=== PATIENT | male | born 1965 | race African-American/Black ===

== ENCOUNTER 2024-09-02 09:58 | Outpatient (CLI) | payer BC ==
[2024-09-02 11:13] LABS: #Basophils Less than 0.03 10x3/uL (0.0-0.2); %Basophils 0.5 % (0.0-1.0); %Eosinophils 1.2 % (0.0-10.0); %Lymphocytes 33.5 % (21.0-51.0); %Monocytes 9.1 % (0.0-10.0); %Neutrophils 55.5 % (42.0-75.0); Hematocrit 39.7 % (42.0-52.0); Hemoglobin 13.2 g/dL (14.0-18.0); Mean Corpuscular HGB CONC 33.2 g/dL (32.0-36.0); Mean Corpuscular Hemoglobin 27.7 pg (27.0-31.0); Mean Corpuscular Volume 83.4 fL (78.0-98.0); Mean Platelet Volume 9.4 fL (7.4-10.4); Platelet Count 265 10x3/uL (130-400); RBC Distribution Width 13.9 % (11.5-14.5); Red Blood Cell (RBC) Count 4.76 mill/uL (4.70-6.10)
[2024-09-02 11:18] LABS: Bacteria/HPF None Seen HPF (None Seen); Bilirubin Negative (Negative); Blood, Urine Negative (Negative); Clarity Clear (Clear); Glucose, Urine (Dipstick) Normal (Negative); Ketone, Urine Negative (Negative); Leukocyte Negative Leu/uL (Negative); Nitrite Negative (Negative); Protein, Urine (Dipstick) 20 mg/dL (Neg-Trace); RBC/HPF 0-3 HPF (0-3); Specific Gravity, Urine 1.027 (1.002-1.036); Squamous Epithelial None Seen HPF (0-3); Urobilinogen Normal mg/dL (Less than 2); WBC/HPF 0-3 HPF (0-3)
[2024-09-02 11:28] LABS: INR-International Normal Ratio 0.9; PTT 25.7 sec (22.9-36.1); Prothrombin Time 12.5 sec (12.0-14.7)
[2024-09-02 11:36] LABS: Anion Gap 11 mmol/L (10-20); BUN (Urea Nitrogen) 16 mg/dL (8.4-25.7); Calc. Creatinine Clearance 0 mL/min (70-130); Carbon Dioxide 23 mmol/L (22-29); Chloride 108 mmol/L (98-107); Estimated GFR 85; Glucose 92 mg/dL (70-105); Potassium 3.7 mmol/L (3.5-5.1); Sodium 138 mmol/L (136-145)
== END 2024-09-02 09:59 | disposition home or self-care (01) ==
LOC: LABBT 09:58
PROVIDERS: ATTEND Urology
DX: Z01.818 Encounter for other preprocedural examination (principal); Z12.5 Encounter for screening for malignant neoplasm of prostate; N40.1 Benign prostatic hyperplasia with lower urinary tract symptoms; N52.9 Male erectile dysfunction, unspecified; N43.3 Hydrocele, unspecified; R35.0 Frequency of micturition; R39.198 Other difficulties with micturition; Z86.711 Personal history of pulmonary embolism
CPT/HCPCS: 80048; 81001; 85025; 85610; 85730; 87086; 93005; 93010

== ENCOUNTER 2024-09-14 05:37 | Day surgery (SDC) | payer BC ==
[2024-09-02 10:21] VITALS: BMI 30.4
[2024-09-14] MEDS ORDERED: fentaNYL PF 100 MCG/2 ML SYRINGE ONE (06:46)
[2024-09-14] MEDS ORDERED: PROPOFOL 20 ML ONE ×2 (06:46→07:42)
[2024-09-14] MEDS ORDERED: Lidocaine 2% PF 5 ML VIAL ONE (06:47)
[2024-09-14] MEDS ORDERED: Bacitracin Zinc Ointment 30 gm TUBE ONE (06:50)
[2024-09-14] MEDS ORDERED: Bupivacaine 0.25% HCL 30 ML VIAL ONE (06:50)
[2024-09-14] MEDS ORDERED: CEFAZOLIN 2 GM VIAL ONE (06:51)
[2024-09-14] MEDS ORDERED: Sodium Chloride 0.9% 100 ML ONE (06:51)
[2024-09-14] MEDS ORDERED: LevoFLOXacin D5W 500 mg (100 mL) BAG ONE (06:51)
[2024-09-14] MEDS ORDERED: Ondansetron PF 4 MG/2 ML Vial ONE (07:36)
[2024-09-14] MEDS ORDERED: Dexamethasone 4 mg/ml Vial ONE (07:36)
[2024-09-14] MEDS ORDERED: PHENYLEPHRINE-NS 100 MCG/ML 10 ML SYRINGE ONE (07:44)
[2024-09-14] MEDS ORDERED: ePHEDrine Sulfate 50 MG/10 ML VIAL ONE (07:52)
[2024-09-14] MEDS ORDERED: fentaNYL 50 mcg/mL 1 mL Vial ONE (08:45)
[2024-09-14] MEDS ORDERED: Tamsulosin HCl 0.4 MG CAP ONE (08:45)
[2024-09-14] MEDS ORDERED: Phenazopyridine HCl 100 MG TAB ONE (08:47)
== END 2024-09-14 12:25 | disposition home or self-care (01) ==
LOC: SDC 05:37
PROVIDERS: ATTEND Urology
PROC: 0TJB8ZZ Inspection of Bladder, Via Natural or Artificial Opening Endoscopic (ICD-10-PCS; principal; 2024-09-14)
PROC: 0VTTXZZ Resection of Prepuce, External Approach (ICD-10-PCS; principal; 2024-09-14)
DX: N40.1 Benign prostatic hyperplasia with lower urinary tract symptoms (principal)
CPT/HCPCS: 88304; J0665; J1100; J1956; J2405; J2704; J3010

== ENCOUNTER 2025-05-02 13:45 | Outpatient (CLI) | payer BC ==
[2025-05-02 15:30] LABS: #Basophils 0.03 10x3/uL (0.0-0.2); #Eosinophils 0.07 10x3/uL (0.0-0.7); #Monocytes 0.42 10x3/uL (0.11-0.59); #Neutrophils 2.63 10x3/uL (1.40-6.50); %Basophils 0.6 % (0.0-1.0); %Eosinophils 1.5 % (0.0-10.0); %Lymphocytes 31.9 % (21.0-51.0); %Monocytes 9.1 % (0.0-10.0); %Neutrophils 56.7 % (42.0-75.0); Hematocrit 40.5 % (42.0-52.0); Hemoglobin 12.9 g/dL (14.0-18.0); Mean Corpuscular Hemoglobin 27.6 pg (27.0-31.0); Mean Corpuscular Volume 86.5 fL (78.0-98.0); Platelet Count 257 10x3/uL (130-400); Red Blood Cell (RBC) Count 4.68 mill/uL (4.70-6.10); White Blood Cell (WBC) Count 4.64 10x3/uL (4.8-10.8)
[2025-05-02 15:48] LABS: INR-International Normal Ratio 1.0; PTT 25.2 sec (22.9-36.1); Prothrombin Time 13.1 sec (12.0-14.7)
[2025-05-02 16:04] LABS: ALT (SGPT) 17 U/L (Less than 45); AST (SGOT) 19 U/L (11-34); Albumin 4.1 g/dL (3.1-4.5); Alkaline Phosphatase 89 U/L (40-110); Anion Gap 16 mmol/L (10-20); BUN (Urea Nitrogen) 16 mg/dL (8.4-25.7); Bilirubin, Total 0.4 mg/dL (0.3-1.2); Calc. Creatinine Clearance 0 mL/min (70-130); Calcium 9.0 mg/dL (7.8-10.44); Carbon Dioxide 24 mmol/L (22-29); Chloride 106 mmol/L (98-107); Globulin 2.6 g/dL (2.4-3.5); Glucose 84 mg/dL (70-105); Potassium 4.0 mmol/L (3.5-5.1); Sodium 142 mmol/L (136-145)
[2025-05-02 16:33] LABS: Bacteria/HPF None Seen HPF (None Seen); Glucose, Urine (Dipstick) Normal (Negative); Leukocyte Negative Leu/uL (Negative); Protein, Urine (Dipstick) Negative (Neg-Trace); RBC/HPF 0-3 HPF (0-3); Specific Gravity, Urine 1.024 (1.002-1.036); WBC/HPF 0-3 HPF (0-3)
== END 2025-05-02 13:46 | disposition home or self-care (01) ==
LOC: LABBT 13:45
PROVIDERS: ATTEND Urology
DX: Z01.818 Encounter for other preprocedural examination (principal); N40.1 Benign prostatic hyperplasia with lower urinary tract symptoms
CPT/HCPCS: 71046; 80053; 81001; 85025; 85610; 85730; 86850; 86900; 86901; 87086; 93005; 93010

== ENCOUNTER 2025-05-15 06:31 | Inpatient (IN) | payer BC ==
[2025-05-15] MEDS ORDERED: Ketamine In 0.9 % NaCl 50 MG/5 ML SYRINGE ONE (06:52)
[2025-05-15] MEDS ORDERED: Rocuronium Bromide 10 MG/ML (10ML VIAL) ONE ×2 (06:54→09:12)
[2025-05-15] MEDS ORDERED: MINERAL OIL/WHITE PETROLATUM 3.5 GM TUBE ONE (06:54)
[2025-05-15] MEDS ORDERED: PROPOFOL 20 ML ONE ×2 (06:54→09:08)
[2025-05-15] MEDS ORDERED: LevoFLOXacin D5W 500 mg (100 mL) BAG ONE (07:03)
[2025-05-15] MEDS ORDERED: Bupivacaine 0.25% HCL 30 ML VIAL ONE (10:19)
[2025-05-15] MEDS ORDERED: HYDROmorphone 2 MG/ML VIAL ONE (12:30)
[2025-05-15] MEDS ORDERED: Ondansetron PF 4 MG/2 ML Vial ONE (12:33)
[2025-05-15] MEDS ORDERED: SUGAMMADEX SODIUM 200 MG/2 ML VIAL ONE (12:34)
[2025-05-15] MEDS ORDERED: fentaNYL PF 100 MCG/2 ML SYRINGE ONE (13:33)
[2025-05-15] MEDS ORDERED: Hyoscyamine SL 0.125 MG TAB ONE (13:33)
[2025-05-15] MEDS ORDERED: HYDROmorphone 0.5 MG/0.5 ML SYRINGE ONE ×2 (13:34→14:03)
[2025-05-15] MEDS ORDERED: diphenhydrAMINE 50 MG/ML VIAL IVP PRN (13:46)
[2025-05-15] MEDS ORDERED: Mag-Al 1200 mg/1200 mg/30 ML UDCUP PO PRN (13:46)
[2025-05-15] MEDS ORDERED: hydrALAZINE 20 MG/ML VIAL SLOW IVP PRN (13:46)
[2025-05-15] MEDS ORDERED: Ondansetron PF 4 MG/2 ML Vial IVP PRN ×2 (13:51→15:55)
[2025-05-15 14:22] LABS: #Basophils Less than 0.03 10x3/uL (0.0-0.2); #Eosinophils Less than 0.03 10x3/uL (0.0-0.7); #Monocytes 0.27 10x3/uL (0.11-0.59); #Neutrophils 10.53 10x3/uL (1.40-6.50); %Basophils 0.1 % (0.0-1.0); %Eosinophils 0.0 % (0.0-10.0); %Lymphocytes 6.1 % (21.0-51.0); %Monocytes 2.3 % (0.0-10.0); %Neutrophils 91.2 % (42.0-75.0); Hematocrit 37.9 % (42.0-52.0); Hemoglobin 12.1 g/dL (14.0-18.0); Mean Corpuscular Hemoglobin 27.8 pg (27.0-31.0); Mean Corpuscular Volume 87.1 fL (78.0-98.0); Platelet Count 214 10x3/uL (130-400); Red Blood Cell (RBC) Count 4.35 mill/uL (4.70-6.10); White Blood Cell (WBC) Count 11.55 10x3/uL (4.8-10.8)
[2025-05-15 14:40] LABS: Anion Gap 14 mmol/L (10-20); BUN (Urea Nitrogen) 19 mg/dL (8.4-25.7); Calc. Creatinine Clearance 77 mL/min (70-130); Calcium 8.2 mg/dL (7.8-10.44); Carbon Dioxide 22 mmol/L (22-29); Chloride 107 mmol/L (98-107); Glucose 165 mg/dL (70-105); Potassium 4.3 mmol/L (3.5-5.1); Sodium 139 mmol/L (136-145)
[2025-05-15] MEDS: Hyoscyamine SL 0.125 MG TAB SL SCH (18:16)
[2025-05-15] MEDS: Famotidine/PF 20 mg/2ml Vial SLOW IVP SCH (20:15)
[2025-05-16 03:11] LABS: #Basophils Less than 0.03 10x3/uL (0.0-0.2); #Eosinophils Less than 0.03 10x3/uL (0.0-0.7); #Monocytes 0.96 10x3/uL (0.11-0.59); #Neutrophils 8.80 10x3/uL (1.40-6.50); %Basophils 0.1 % (0.0-1.0); %Eosinophils 0.0 % (0.0-10.0); %Lymphocytes 11.6 % (21.0-51.0); %Monocytes 8.7 % (0.0-10.0); %Neutrophils 79.4 % (42.0-75.0); Hematocrit 38.2 % (42.0-52.0); Hemoglobin 12.1 g/dL (14.0-18.0); Mean Corpuscular Hemoglobin 28.0 pg (27.0-31.0); Mean Corpuscular Volume 88.4 fL (78.0-98.0); Platelet Count 206 10x3/uL (130-400); Red Blood Cell (RBC) Count 4.32 mill/uL (4.70-6.10); White Blood Cell (WBC) Count 11.08 10x3/uL (4.8-10.8)
[2025-05-16 03:43] LABS: Anion Gap 14 mmol/L (10-20); BUN (Urea Nitrogen) 14 mg/dL (8.4-25.7); Calc. Creatinine Clearance 84 mL/min (70-130); Calcium 8.2 mg/dL (7.8-10.44); Carbon Dioxide 22 mmol/L (22-29); Chloride 108 mmol/L (98-107); Glucose 104 mg/dL (70-105); Potassium 4.0 mmol/L (3.5-5.1); Sodium 140 mmol/L (136-145)
[2025-05-16] MEDS: cefTRIAXone\\ROCEPHIN 1 GM in Sodium Chloride 0.9% 100 ML IVPB SCH (05:04)
[2025-05-16] MEDS: Acetaminophen 325 MG TAB PO PRN (20:23)
[2025-05-17 05:22] LABS: #Basophils 0.03 10x3/uL (0.0-0.2); #Eosinophils 0.06 10x3/uL (0.0-0.7); #Monocytes 0.64 10x3/uL (0.11-0.59); #Neutrophils 4.78 10x3/uL (1.40-6.50); %Basophils 0.4 % (0.0-1.0); %Eosinophils 0.9 % (0.0-10.0); %Lymphocytes 20.0 % (21.0-51.0); %Monocytes 9.3 % (0.0-10.0); %Neutrophils 69.1 % (42.0-75.0); Hematocrit 36.9 % (42.0-52.0); Hemoglobin 12.0 g/dL (14.0-18.0); Mean Corpuscular Hemoglobin 28.1 pg (27.0-31.0); Mean Corpuscular Volume 86.4 fL (78.0-98.0); Platelet Count 199 10x3/uL (130-400); Red Blood Cell (RBC) Count 4.27 mill/uL (4.70-6.10); White Blood Cell (WBC) Count 6.91 10x3/uL (4.8-10.8)
[2025-05-17 05:39] LABS: Anion Gap 13 mmol/L (10-20); BUN (Urea Nitrogen) 10 mg/dL (8.4-25.7); Calc. Creatinine Clearance 91 mL/min (70-130); Calcium 8.4 mg/dL (7.8-10.44); Carbon Dioxide 24 mmol/L (22-29); Chloride 110 mmol/L (98-107); Glucose 94 mg/dL (70-105); Potassium 3.8 mmol/L (3.5-5.1); Sodium 143 mmol/L (136-145)
[2025-05-17] MEDS: HYDROcodone/Acetaminophen 7.5/325 mg Tablet PO PRN (19:20)
[2025-05-18] MEDS: Aspirin 325 MG TAB PO SCH (02:10)
[2025-05-18 03:15] LABS: #Basophils 0.03 10x3/uL (0.0-0.2); #Eosinophils 0.04 10x3/uL (0.0-0.7); #Monocytes 0.52 10x3/uL (0.11-0.59); #Neutrophils 6.24 10x3/uL (1.40-6.50); %Basophils 0.4 % (0.0-1.0); %Eosinophils 0.5 % (0.0-10.0); %Lymphocytes 14.0 % (21.0-51.0); %Monocytes 6.5 % (0.0-10.0); %Neutrophils 78.2 % (42.0-75.0); Hematocrit 37.1 % (42.0-52.0); Hemoglobin 12.2 g/dL (14.0-18.0); Mean Corpuscular Hemoglobin 28.0 pg (27.0-31.0); Mean Corpuscular Volume 85.1 fL (78.0-98.0); Platelet Count 173 10x3/uL (130-400); Red Blood Cell (RBC) Count 4.36 mill/uL (4.70-6.10); White Blood Cell (WBC) Count 7.98 10x3/uL (4.8-10.8)
[2025-05-18 03:39] LABS: Hb (HGBA1c) 4391.1004 umol/L
[2025-05-18 03:59] LABS: Anion Gap 14 mmol/L (10-20); BUN (Urea Nitrogen) 8 mg/dL (8.4-25.7); Calc. Creatinine Clearance 109 mL/min (70-130); Calcium 8.6 mg/dL (7.8-10.44); Carbon Dioxide 19 mmol/L (22-29); Cardiac Risk 3.5 (Less than 4.5); Chloride 108 mmol/L (98-107); Cholesterol 169 mg/dl (< 200 Desired); Glucose 112 mg/dL (70-105); HDL Cholesterol 48 mg/dL (>60 Neg Risk); LDL Cholesterol, Calculated 99 mg/dL; Potassium 3.3 mmol/L (3.5-5.1); Sodium 138 mmol/L (136-145); Triglycerides 112 mg/dL (Less than 150)
[2025-05-18] MEDS: Aspirin 81 mg Enteric Coated Tablet PO SCH (08:50)
[2025-05-18] MEDS ORDERED: Iopamidol-370 76% 500 ML MDV (1 ML CHARGE) ONE (11:11)
[2025-05-19 05:02] LABS: #Basophils 0.04 10x3/uL (0.0-0.2); #Eosinophils 0.24 10x3/uL (0.0-0.7); #Monocytes 0.53 10x3/uL (0.11-0.59); #Neutrophils 4.67 10x3/uL (1.40-6.50); %Basophils 0.6 % (0.0-1.0); %Eosinophils 3.4 % (0.0-10.0); %Lymphocytes 21.3 % (21.0-51.0); %Monocytes 7.6 % (0.0-10.0); %Neutrophils 66.8 % (42.0-75.0); Hematocrit 34.5 % (42.0-52.0); Hemoglobin 11.3 g/dL (14.0-18.0); Mean Corpuscular Hemoglobin 27.5 pg (27.0-31.0); Mean Corpuscular Volume 83.9 fL (78.0-98.0); Platelet Count 178 10x3/uL (130-400); Red Blood Cell (RBC) Count 4.11 mill/uL (4.70-6.10); White Blood Cell (WBC) Count 6.99 10x3/uL (4.8-10.8)
[2025-05-19 05:22] LABS: Anion Gap 13 mmol/L (10-20); BUN (Urea Nitrogen) 5 mg/dL (8.4-25.7); Calc. Creatinine Clearance 108 mL/min (70-130); Calcium 8.3 mg/dL (7.8-10.44); Carbon Dioxide 19 mmol/L (22-29); Cardiac Risk 3.9 (Less than 4.5); Chloride 110 mmol/L (98-107); Cholesterol 154 mg/dl (< 200 Desired); Glucose 88 mg/dL (70-105); HDL Cholesterol 40 mg/dL (>60 Neg Risk); LDL Cholesterol, Calculated 95 mg/dL; Potassium 3.4 mmol/L (3.5-5.1); Sodium 139 mmol/L (136-145); Triglycerides 95 mg/dL (Less than 150)
[2025-05-20 06:01] LABS: #Basophils Less than 0.03 10x3/uL (0.0-0.2); #Eosinophils 0.24 10x3/uL (0.0-0.7); #Monocytes 0.61 10x3/uL (0.11-0.59); #Neutrophils 4.39 10x3/uL (1.40-6.50); %Basophils 0.3 % (0.0-1.0); %Eosinophils 3.4 % (0.0-10.0); %Lymphocytes 24.2 % (21.0-51.0); %Monocytes 8.8 % (0.0-10.0); %Neutrophils 63.0 % (42.0-75.0); Hematocrit 35.3 % (42.0-52.0); Hemoglobin 11.5 g/dL (14.0-18.0); Mean Corpuscular Hemoglobin 27.6 pg (27.0-31.0); Mean Corpuscular Volume 84.9 fL (78.0-98.0); Platelet Count 159 10x3/uL (130-400); Red Blood Cell (RBC) Count 4.16 mill/uL (4.70-6.10); White Blood Cell (WBC) Count 6.97 10x3/uL (4.8-10.8)
[2025-05-20 06:32] LABS: Anion Gap 14 mmol/L (10-20); BUN (Urea Nitrogen) 6 mg/dL (8.4-25.7); Calc. Creatinine Clearance 104 mL/min (70-130); Calcium 8.3 mg/dL (7.8-10.44); Carbon Dioxide 19 mmol/L (22-29); Chloride 108 mmol/L (98-107); Glucose 86 mg/dL (70-105); Potassium 3.4 mmol/L (3.5-5.1); Sodium 138 mmol/L (136-145)
[2025-05-20] MEDS: HYDROcodone/Acetaminophen 7.5/325 mg Tablet PO PRN (10:24)
[2025-05-21 05:35] LABS: #Basophils 0.04 10x3/uL (0.0-0.2); #Eosinophils 0.21 10x3/uL (0.0-0.7); #Monocytes 0.65 10x3/uL (0.11-0.59); #Neutrophils 4.53 10x3/uL (1.40-6.50); %Basophils 0.6 % (0.0-1.0); %Eosinophils 3.1 % (0.0-10.0); %Lymphocytes 19.7 % (21.0-51.0); %Monocytes 9.6 % (0.0-10.0); %Neutrophils 66.7 % (42.0-75.0); Hematocrit 34.6 % (42.0-52.0); Hemoglobin 11.2 g/dL (14.0-18.0); Mean Corpuscular Hemoglobin 27.5 pg (27.0-31.0); Mean Corpuscular Volume 85.0 fL (78.0-98.0); Platelet Count 164 10x3/uL (130-400); Red Blood Cell (RBC) Count 4.07 mill/uL (4.70-6.10); White Blood Cell (WBC) Count 6.79 10x3/uL (4.8-10.8)
[2025-05-21 05:50] LABS: Anion Gap 12 mmol/L (10-20); BUN (Urea Nitrogen) 6 mg/dL (8.4-25.7); Calc. Creatinine Clearance 104 mL/min (70-130); Calcium 8.5 mg/dL (7.8-10.44); Carbon Dioxide 21 mmol/L (22-29); Chloride 108 mmol/L (98-107); Glucose 95 mg/dL (70-105); Potassium 3.4 mmol/L (3.5-5.1); Sodium 138 mmol/L (136-145)
[2025-05-22 03:22] LABS: #Basophils Less than 0.03 10x3/uL (0.0-0.2); #Eosinophils 0.20 10x3/uL (0.0-0.7); #Monocytes 0.64 10x3/uL (0.11-0.59); #Neutrophils 4.16 10x3/uL (1.40-6.50); %Basophils 0.3 % (0.0-1.0); %Eosinophils 3.2 % (0.0-10.0); %Lymphocytes 19.1 % (21.0-51.0); %Monocytes 10.3 % (0.0-10.0); %Neutrophils 66.9 % (42.0-75.0); Hematocrit 32.1 % (42.0-52.0); Hemoglobin 10.5 g/dL (14.0-18.0); Mean Corpuscular Hemoglobin 27.9 pg (27.0-31.0); Mean Corpuscular Volume 85.4 fL (78.0-98.0); Platelet Count 168 10x3/uL (130-400); Red Blood Cell (RBC) Count 3.76 mill/uL (4.70-6.10); White Blood Cell (WBC) Count 6.22 10x3/uL (4.8-10.8)
[2025-05-22 05:08] LABS: Anion Gap 13 mmol/L (10-20); BUN (Urea Nitrogen) 7 mg/dL (8.4-25.7); Calc. Creatinine Clearance 108 mL/min (70-130); Calcium 8.2 mg/dL (7.8-10.44); Carbon Dioxide 20 mmol/L (22-29); Chloride 108 mmol/L (98-107); Glucose 102 mg/dL (70-105); Potassium 3.3 mmol/L (3.5-5.1); Sodium 138 mmol/L (136-145)
[2025-05-22 08:07] LABS: Magnesium 1.7 mg/dL (1.6-2.6)
[2025-05-22 10:29] VITALS: BMI 29.5
[2025-05-23 04:18] LABS: Hematocrit 33.3 % (42.0-52.0); Hemoglobin 10.9 g/dL (14.0-18.0); Mean Corpuscular Hemoglobin 27.7 pg (27.0-31.0); Mean Corpuscular Volume 84.5 fL (78.0-98.0); Platelet Count 195 10x3/uL (130-400); Red Blood Cell (RBC) Count 3.94 mill/uL (4.70-6.10); White Blood Cell (WBC) Count 7.21 10x3/uL (4.8-10.8)
[2025-05-23 04:36] LABS: Anion Gap 13 mmol/L (10-20); BUN (Urea Nitrogen) 8 mg/dL (8.4-25.7); Calc. Creatinine Clearance 96 mL/min (70-130); Calcium 8.4 mg/dL (7.8-10.44); Carbon Dioxide 23 mmol/L (22-29); Chloride 108 mmol/L (98-107); Glucose 96 mg/dL (70-105); Potassium 3.7 mmol/L (3.5-5.1); Sodium 140 mmol/L (136-145)
[2025-05-23] MEDS ORDERED: Iopamidol-370 76% 500 ML BOT (X-RAY USE) FS ONE (10:49)
[2025-05-24] MEDS ORDERED: Simethicone Chewable 80 MG TAB PO PRN (00:32)
[2025-05-24 04:41] LABS: Hematocrit 34.8 % (42.0-52.0); Hemoglobin 11.4 g/dL (14.0-18.0); Mean Corpuscular Hemoglobin 27.6 pg (27.0-31.0); Mean Corpuscular Volume 84.3 fL (78.0-98.0); Platelet Count 214 10x3/uL (130-400); Red Blood Cell (RBC) Count 4.13 mill/uL (4.70-6.10); White Blood Cell (WBC) Count 7.39 10x3/uL (4.8-10.8)
[2025-05-24 05:04] LABS: Anion Gap 16 mmol/L (10-20); BUN (Urea Nitrogen) 8 mg/dL (8.4-25.7); Calc. Creatinine Clearance 103 mL/min (70-130); Calcium 8.5 mg/dL (7.8-10.44); Carbon Dioxide 22 mmol/L (22-29); Chloride 106 mmol/L (98-107); Glucose 94 mg/dL (70-105); Potassium 3.6 mmol/L (3.5-5.1); Sodium 140 mmol/L (136-145)
[2025-05-24 05:35] VITALS: BMI 29.7
[2025-05-24] MEDS: Famotidine 20 MG TAB PO SCH (21:31)
[2025-05-25 04:27] LABS: Hematocrit 33.9 % (42.0-52.0); Hemoglobin 11.2 g/dL (14.0-18.0); Mean Corpuscular Hemoglobin 27.6 pg (27.0-31.0); Mean Corpuscular Volume 83.5 fL (78.0-98.0); Platelet Count 219 10x3/uL (130-400); Red Blood Cell (RBC) Count 4.06 mill/uL (4.70-6.10); White Blood Cell (WBC) Count 8.04 10x3/uL (4.8-10.8)
[2025-05-25 04:41] LABS: Anion Gap 15 mmol/L (10-20); BUN (Urea Nitrogen) 7 mg/dL (8.4-25.7); Calc. Creatinine Clearance 114 mL/min (70-130); Calcium 8.7 mg/dL (7.8-10.44); Carbon Dioxide 21 mmol/L (22-29); Chloride 106 mmol/L (98-107); Glucose 92 mg/dL (70-105); Potassium 3.6 mmol/L (3.5-5.1); Sodium 138 mmol/L (136-145)
[2025-05-26 04:07] LABS: #Basophils 0.04 10x3/uL (0.0-0.2); #Eosinophils 0.24 10x3/uL (0.0-0.7); #Monocytes 0.79 10x3/uL (0.11-0.59); #Neutrophils 5.44 10x3/uL (1.40-6.50); %Basophils 0.5 % (0.0-1.0); %Eosinophils 3.0 % (0.0-10.0); %Lymphocytes 18.1 % (21.0-51.0); %Monocytes 9.9 % (0.0-10.0); %Neutrophils 68.2 % (42.0-75.0); Hematocrit 34.4 % (42.0-52.0); Hemoglobin 11.2 g/dL (14.0-18.0); Mean Corpuscular Hemoglobin 27.6 pg (27.0-31.0); Mean Corpuscular Volume 84.7 fL (78.0-98.0); Platelet Count 251 10x3/uL (130-400); Red Blood Cell (RBC) Count 4.06 mill/uL (4.70-6.10); White Blood Cell (WBC) Count 7.97 10x3/uL (4.8-10.8)
[2025-05-26 04:41] LABS: Anion Gap 14 mmol/L (10-20); BUN (Urea Nitrogen) 9 mg/dL (8.4-25.7); Calc. Creatinine Clearance 94 mL/min (70-130); Calcium 8.6 mg/dL (7.8-10.44); Carbon Dioxide 23 mmol/L (22-29); Chloride 107 mmol/L (98-107); Glucose 102 mg/dL (70-105); Potassium 3.5 mmol/L (3.5-5.1); Sodium 140 mmol/L (136-145)
[2025-05-27 03:59] LABS: Hematocrit 34.8 % (42.0-52.0); Hemoglobin 11.3 g/dL (14.0-18.0); Mean Corpuscular Hemoglobin 27.6 pg (27.0-31.0); Mean Corpuscular Volume 84.9 fL (78.0-98.0); Platelet Count 256 10x3/uL (130-400); Red Blood Cell (RBC) Count 4.10 mill/uL (4.70-6.10); White Blood Cell (WBC) Count 7.74 10x3/uL (4.8-10.8)
[2025-05-27 04:25] LABS: Anion Gap 15 mmol/L (10-20); BUN (Urea Nitrogen) 7 mg/dL (8.4-25.7); Calc. Creatinine Clearance 95 mL/min (70-130); Calcium 8.8 mg/dL (7.8-10.44); Carbon Dioxide 23 mmol/L (22-29); Chloride 108 mmol/L (98-107); Glucose 106 mg/dL (70-105); Potassium 3.6 mmol/L (3.5-5.1); Sodium 142 mmol/L (136-145)
[2025-05-27 15:50] VITALS: BP 112/60; TEMP 97.9
== END 2025-05-27 19:04 | DRG 717 ==
LOC: SDC 06:31 → EDSTATUS 13:00 → CCU 15:30 → IMCU/EMU 05-16 19:41 → 2NO 05-20 12:51 → IMCU/EMU 05-20 22:57 → PCU 05-24 22:43 → 2SE 05-24 23:12 → PCU 05-24 23:23 → 2SE 05-26 03:40
PROVIDERS: ADMIT Urology; ATTEND Hospitalist
PROC: 0VB04ZZ Excision of Prostate, Percutaneous Endoscopic Approach (ICD-10-PCS; principal; 2025-05-15)
PROC: 0T9 Urinary System, Drainage (ICD-10-PCS; 2025-05-15)
PROC: 8E0W4CZ Robotic Assisted Procedure of Trunk Region, Percutaneous Endoscopic Approach (ICD-10-PCS; 2025-05-15)
PROC: 0T9740Z Drainage of Left Ureter with Drainage Device, Percutaneous Endoscopic Approach (ICD-10-PCS; 2025-05-15)
PROC: B24BZZ4 Ultrasonography of Heart with Aorta, Transesophageal (ICD-10-PCS; 2025-05-23)
DX: N40.1 Benign prostatic hyperplasia with lower urinary tract symptoms (principal); I63.9 Cerebral infarction, unspecified; G81.94 Hemiplegia, unspecified affecting left nondominant side; Q21.12 Patent foramen ovale; R39.198 Other difficulties with micturition; F17.210 Nicotine dependence, cigarettes, uncomplicated; R31.0 Gross hematuria; D64.9 Anemia, unspecified; E87.6 Hypokalemia; R35.0 Frequency of micturition; N52.9 Male erectile dysfunction, unspecified; Z79.899 Other long term (current) drug therapy; Z98.890 Other specified postprocedural states; Z86.16 Personal history of COVID-19; Z86.711 Personal history of pulmonary embolism; Z91.018 Allergy to other foods
CPT/HCPCS: 36415; 51600; 70450; 70496; 70498; 70551; 74430; 80048; 80061; 82570; 83036; 83735; 85025; 85027; 86850; 86900; 86901; 88305; 93306; 93312; 93970; A4314; A4333; C1713; C1751; C1889; C9250-JZ; J0169; J0665; J0694; J0696; J1100; J1171; J1956; J2250; J2704; J3010; J3490; J7030; P9045; Q9967; S2900

== ENCOUNTER 2025-05-29 17:22 | Emergency (ER) | payer BC ==
[2025-05-29 18:27] LABS: #Basophils 0.05 10x3/uL (0.0-0.2); #Eosinophils 0.18 10x3/uL (0.0-0.7); #Monocytes 0.60 10x3/uL (0.11-0.59); #Neutrophils 5.52 10x3/uL (1.40-6.50); %Basophils 0.6 % (0.0-1.0); %Eosinophils 2.3 % (0.0-10.0); %Lymphocytes 18.5 % (21.0-51.0); %Monocytes 7.7 % (0.0-10.0); %Neutrophils 70.6 % (42.0-75.0); Hematocrit 40.0 % (42.0-52.0); Hemoglobin 12.7 g/dL (14.0-18.0); Mean Corpuscular Hemoglobin 27.1 pg (27.0-31.0); Mean Corpuscular Volume 85.3 fL (78.0-98.0); Platelet Count 332 10x3/uL (130-400); Red Blood Cell (RBC) Count 4.69 mill/uL (4.70-6.10); White Blood Cell (WBC) Count 7.82 10x3/uL (4.8-10.8)
[2025-05-29 18:43] LABS: ALT (SGPT) 61 U/L (Less than 45); AST (SGOT) 53 U/L (11-34); Albumin 3.9 g/dL (3.1-4.5); Alkaline Phosphatase 148 U/L (40-110); Anion Gap 18 mmol/L (10-20); BUN (Urea Nitrogen) 15 mg/dL (8.4-25.7); Bilirubin, Total 0.4 mg/dL (0.3-1.2); Calc. Creatinine Clearance 0 mL/min (70-130); Calcium 9.3 mg/dL (7.8-10.44); Carbon Dioxide 22 mmol/L (22-29); Chloride 106 mmol/L (98-107); Globulin 3.8 g/dL (2.4-3.5); Glucose 90 mg/dL (70-105); Potassium 4.2 mmol/L (3.5-5.1); Sodium 142 mmol/L (136-145)
[2025-05-29 18:46] LABS: Bacteria/HPF None Seen HPF (None Seen); CAUTI Indications for Culture Acute Hematuria; Glucose, Urine (Dipstick) Normal (Negative); Leukocyte 75 Leu/uL (Negative); Protein, Urine (Dipstick) 50 mg/dL (Neg-Trace); RBC/HPF Greater than 50 HPF (0-3); Specific Gravity, Urine 1.016 (1.002-1.036); WBC/HPF 0-3 HPF (0-3)
[2025-05-29 19:08] LABS: Urine Culture Reflex No No
== END 2025-05-29 21:34 ==
LOC: ERS 17:22
DX: R31.9 Hematuria, unspecified (principal); Z86.73 Personal history of transient ischemic attack (TIA), and cerebral infarction without residual deficits
CPT/HCPCS: 81001; 99283